=== PATIENT | female | born 1945 | race Caucasian/White ===

== ENCOUNTER 2018-05-27 14:38 | Emergency (ER) | payer MEDICARE, OTHER ==
[~2018-05-27] VITALS: Ht 162.5 cm; Wt 62.6 kg
[2018-05-27 14:38] VITALS: BP 115/38
[~2018-05-27 14:38] MED LIST: 24 HOUR ALLER15.8 ML NS; AMLODIPINE BESYL5 MG PO; BLOOD PRESSURE MED; CLARITIN10 MG PO; CLONIDINE HCL0.1 M1 PO; ESTRACE0.5 MG PO; ESTRACE1 M1 PO; ESTROGEN; FISH OIL500 M1 PO; FOLIC ACID0.4 MG PO; MAREPA1200 MG PO; OMEGA-3 FISH1200 MG PO; PROPRANOLOL HCL80 M1 PO; SYNTHROID,LEVO88 MCG PO; SYNTHROID0.088 MG PO; Synthroid,Levo25 MCG PO; TRAZADONE HYDR100 MG PO; TRAZODONE HCL150 MG PO; XANAX0.5 MG PO; XARELTO STARTER20 MG PO; ZESTRIL,PRINIVI20 MG PO; ZESTRIL10 MG PO; ZESTRIL40 MG PO
== END 2018-05-27 17:15 | disposition home or self-care (01) ==
LOC: ED 14:38
DX: S70.02XA Contusion of left hip, initial encounter (principal); Z79.899 Other long term (current) drug therapy; W18.39XA Other fall on same level, initial encounter; Y93.89 Activity, other specified; Y92.59 Other trade areas as the place of occurrence of the external cause; Y99.8 Other external cause status